=== PATIENT | female | born 1990 | race Caucasian/White ===

== ENCOUNTER 2020-07-03 05:33 | Inpatient (IN) | payer MEDICAID ==
[2020-07-03] VITALS (7 sets, daily range): BP systolic 145–199; BP diastolic 69–112; Ht 172.7 cm; Wt 81.6 kg
[~2020-07-03] VITALS: Ht 172.7 cm; Wt 81.6 kg
[2020-07-03 06:29] LABS: UDS - AMPHET POSITIVE QUAL (NEGATIVE); UDS - BARB NEGATIVE QUAL (NEGATIVE); UDS - BENZO NEGATIVE QUAL (NEGATIVE); UDS - COCAINE NEGATIVE QUAL (NEGATIVE); UDS - OPIATE NEGATIVE QUAL (NEGATIVE); UDS - PCP NEGATIVE QUAL (NEGATIVE); UDS - THC NEGATIVE QUAL (NEGATIVE)
[2020-07-03 06:45] LABS: HEMATOCRIT 32.9 % (36.0-48.0); HEMOGLOBIN 10.6 g/dL (12-16); MCH 27.4 pg (26.0-34.0); MCHC 32.2 g/dL (31.0-37.0); MEAN PLATELET VOLUME 10.9 fL (7.4-10.4); RBC 3.87 10x6/uL (4.00-5.40); RDW 14.3 % (11.5-14.5); WBC 8.9 10x3/uL (4.8-10.8)
[2020-07-03 09:14] LABS: CALC OSMOLALITY 274 mosm/kg (275-300); CALCIUM 8.3 mg/dL (8.5-10.1); CARBON DIOXIDE 21.6 mmol/L (21.0-32.0); CHLORIDE - SERUM 104 mmol/L (98-107); CREATININE - SERUM 0.7 mg/dL (0.6-1.3); GLUCOSE 85 mg/dL (74-106); POTASSIUM - SERUM 3.9 mmol/L (3.5-5.1); SODIUM 139 mmol/L (136-145); UREA NITROGEN 7 mg/dL (7-18); eGFR NON AFRICAN AMERICAN > 90 mL/min (90-120)
[2020-07-03 09:20] LABS: ALBUMIN 2.5 g/dL (3.4-5.0); ALKALINE PHOSPHATASE 340 U/L (30-120); ALT (SGPT) 21 U/L (10-68); PROTEIN - SERUM 6.6 g/dL (6.4-8.2)
--- NOTE | 2020-07-03 14:43 | NUR ---
B/P DONE AND STABLE AT THIS TIME. 2+ PITTING EDEMA NOTED TO BLE. DENIES HEADACHE. DTR'S 2+ TO PATELLA. DENIES NAUSEA AND VOMITING. RESTING QUIETLY. PT WITH QUESTIONS REGARDING INFANT STATUS. NBN CONTACTED AND SPOKE WITH PT. BREATH SOUNDS REMAINS CLEAR AND EQUAL BILATERALLY, UNLABORED AND REGULAR. BED IN LOW POSITION WITH SRUP X2. CALL LIGHT AND PHONE WITHIN REACH.
--- NOTE | 2020-07-03 15:57 | NUR ---
DR. CHANEY CALLED. B/P REVIEWED. ORDERS REC'D TO CHANGE B/P CHECKS TO Q2H AND CONTINUE TO MONITOR.
--- NOTE | 2020-07-03 16:13 | NUR ---
CALLS VIA CALL LIGHT. UP TO BR WITH STANDBY ASSIST. PERICARE DONE PER PT. BACK TO BED. UPDATED ON POC, VERBALIZES UNDERSTANDING AND AGREEMENT. INSTRUCTED ON HOW TO CONTACT NBN FROM ROOM, PHONE. PT CALLS NBN FOR UPDATE ON INFANT. DENIES ADDITIONAL NEEDS. BED IN LOW POSITION WITH SRUP X2. LIGHTS OFF.
--- NOTE | 2020-07-03 17:57 | NUR ---
B/P CURRENTLY 160/78. PT LAYING ON L SIDE RESTING WITH EYES CLOSED, RESPIRATION REGULAR AND UNLABORED. 2+ PITTING EDEMA TO BLE. DENIES HEADACHE, NAUSEA, VOMITING, EPIGASTRIC PAIN AT THIS TIME. +2 DRT'S TO BILATERAL PATELLA. DENIES PAIN AND NEEDS AT THIS TIME. PT NOTED TO BE FALLING ASLEEP MID-SENTENCE AND REQUIRING RN TO REORIENT TO TASK TO FINISH ANSWERING QUESTIONS. BED IN LOW POSITION WITH SRUP X2. CALL LIGHT AND PHONE WITHIN REACH.
--- NOTE | 2020-07-03 20:08 | NUR ---
DR. CHANEY CALLED ABOUT PT'S BP, ORDER FOR PROCARDIA 60MG XL NOW AND THEN DAILY.
--- NOTE | 2020-07-03 20:30 | NUR ---
[facility] HERE DISCUSSING POC WITH BOTH PARENTS REGARDING REMOVAL FROM THEIR CARE D/T POSITIVE DRUG SCREENS IN MOM AND BABY.
[2020-07-04 00:04] VITALS: BP 164/86
[2020-07-04 01:36] VITALS: BP 157/83
[2020-07-04 04:12] VITALS: BP 140/87
--- NOTE | 2020-07-04 04:13 | NUR ---
pt resting quietly in bed, denies any needs or wants. s/o at bedside.
[2020-07-04 05:23] LABS: BASOPHILS 0.2 % (0-2); HEMATOCRIT 32.4 % (36.0-48.0); HEMOGLOBIN 10.3 g/dL (12-16); IMMATURE GRANULOCYTES 0.2 % (0-5); LYMPHOCYTES 31.3 % (15-50); MCH 27.2 pg (26.0-34.0); MCHC 31.8 g/dL (31.0-37.0); MCV 85.7 fL (80.0-100.0); MEAN PLATELET VOLUME 10.4 fL (7.4-10.4); MONOCYTES 7.1 % (2-11); NEUTROPHILS 60.2 % (40-80); PLATELET COUNT 256 10x3/uL (130-400); RBC 3.78 10x6/uL (4.00-5.40); RDW 14.6 % (11.5-14.5); WBC 8.7 10x3/uL (4.8-10.8)
[2020-07-04 06:11] LABS: HEPATITIS C ANTIBODY 0.1 S/CO RAT (0.0-0.9); RAPID PLASMA REAGIN Non Reactive (Non Reactive)
[2020-07-04 07:44] VITALS: BP 147/80
--- NOTE | 2020-07-04 07:44 | NUR ---
THIS RN TO BEDSIDE FOR AM ASSESSMENT, UPON ENTERING ROOM PT AND SIG OTHER ARE IN BED AND SLEEPING WITH NO SIGNS OF DISTRESS NOTED. PT DOES AWAKEN WHEN HER BLOOD PRESSURE IS BEING TAKEN AND RATES PAIN AT 0/10. ATTEMPT TO DISCONTINUE SALINE LOCK BUT PT PULL HAND BACK AND STATES SHE WILL CALL WHEN SHE WAKES UP. SIDE RAILS UP X 2 WITH CALL LIGHT IN REACH.
[2020-07-04 09:12] LABS: RUBELLA IGG 3.13 index (Immune >0.99)
--- NOTE | 2020-07-04 09:30 | NUR ---
TO ROOM TO GO OVER DISCHARGE INSTRUCTIONS. PT IS STILL SLEEPING, ATTEMPT TO WAKE UP VERBALLY AND BY GENTLY SHAKING PT SHOULDER, SHE IS UNABLE TO STAY AWAKE FOR DISCHARGE TEACHING TO BE DONE. WILL TRY AGAIN WHEN SHE WAKES UP HERSELF, SIDE RAILS UP X 2 WITH PHONE AND CALL LIGHT IN REACH.
[2020-07-04] MEDS ORDERED: PROCARDIA XL60 MG PO (11:30)
--- NOTE | 2020-07-04 12:00 | NUR ---
THIS RN TO BEDSIDE FOR DISCHARGE TEACHING. UPON ENTERING ROOM PT AND SIG OTHER ARE SLEEPING AND NEITHER RESPOND TO NAME BEING CALLED. LIGHTS ARE TURNED ON AND CONTINUE TO CALL OUT PT NAME. SHE DOES RESPOND AT THIS TIME, AGREEABLE TO DISCHARGE. SALINE LOCK FROM RIGHT HAND REMOVED INTACT, PROCARDIA 60MG XL GIVEN SCANNED TO EMAR. VERBAL AND WRITTEN DISCHARGE TEACHING GONE OVER, SHE IS ALSO GIVEN A WRITTEN SCRIPT FOR PROCARDIA XL 60MG WITH PRINTED INSTRUCTIONS ON HOW TO TAKE, PT IS ADVISED TO HAVE HER BP CHECKED AT [facility] WITHIN A WEEK-2WEEKS AT THE LATEST. SHE EXPRESS CONCERN OVER NOT HAVING INSURANCE AT THIS TIME BUT HAS SPOKEN TO HOSPITAL PERSONNEL ABOUT MEDICAID AND THAT HAS BEEN STARTED. PT UNDERSTANDS TO CALL PHARMACY FOR [place] [facility] MED AND IF SHE CANNOT AFFORD TO CONTACT DR HENSLEY AT [facility]. STRESSED IMPORTANCE OF TAKING MED TO CONTROL HER ELEVATED BLOOD PRESSURE AND RISK OF BP BEING ELEVATED. PT ASK TO SPEAK WITH NURSERY BEFORE DISCHARGE. NURSERY NURSE NOTIFIED.
--- NOTE | 2020-07-04 12:30 | NUR ---
PT AMB TO UNIT DESK STATING THAT SHE IS READY AND SIG OTHER HAS TAKEN HER THINGS OUT AND BRINGING CAR TO FRONT DOOR. DENIES WHEELCHAIR, AMB WITH THIS RN TO FRONT AND HOME BY PRIVATE CAR WITH SIG OTHER.
[2020-07-06 15:12] LABS: HGB SOLUBILITY (SICKLE SCREEN) Negative (Negative)
== END 2020-07-04 12:30 | disposition home or self-care (01) | DRG 807 ==
LOC: D.LD 05:33
PROVIDERS: ADMIT Student in an Organized Health Care Education/Training Program; ATTEND Student in an Organized Health Care Education/Training Program
PROC: 10E0XZZ Delivery of Products of Conception, External Approach (ICD-10-PCS; principal; 2020-07-03)
DX: O99.324 Drug use complicating childbirth (principal); Z37.0 Single live birth; F15.90 Other stimulant use, unspecified, uncomplicated; F14.90 Cocaine use, unspecified, uncomplicated; Z3A.40 40 weeks gestation of pregnancy